=== PATIENT | female | born 2000 | race African-American/Black ===

== ENCOUNTER 2020-06-14 19:34 | Emergency (ER) | payer OTHER ==
[~2020-06-14] VITALS: Ht 160 cm; Wt 68.2 kg
[2020-06-14 19:37] VITALS: TEMP 97.3
[2020-06-14 21:55] VITALS: BP 116/74; PULSE 81
== END 2020-06-14 21:55 | disposition home or self-care (01) ==
LOC: COL.ER 19:34
DX: T78.1XXA Other adverse food reactions, not elsewhere classified, initial encounter (principal); R06.02 Shortness of breath
CPT/HCPCS: J1100; J1200